=== PATIENT | male | born 2000 | race African-American/Black ===

== ENCOUNTER 2022-08-08 15:47 | Emergency (ER) | payer BC, SELFPAY ==
[2022-08-08 15:52] VITALS: BP 153/82; PULSE 98; RESP 18; TEMP 36.6; O2SAT 100
--- NOTE | 2022-08-08 18:31 | ED.GENADULT ---
HPI - General Adult General Chief complaint: Urogenital-Male Stated complaint: Pain in groin Time Seen by Provider: 08/08/22 18:30 Source: patient Mode of arrival: ambulatory Limitations: no limitations History of Present Illness HPI narrative: 22 years old -Ang[place] male presented to the ED with intermittent sharp pain at the left groin area. He denies any fever, chills, nausea, vomiting. 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 Pain gets worse with certain positions. He denies any urinary symptoms, diarrhea or constipation. Related Data Allergies Allergy/AdvReac Type Severity Reaction Status Date / Time No Known Allergies Allergy Verified 08/08/22 15:55 Review of Systems Review of Systems: All systems reviewed & are unremarkable except as noted in HPI and below Exam Narrative: General appearance: Well-developed, well-nourished Skin: Normal color Head: Normocephalic, nontraumatic Eyes: Clear conjunctiva ENT: Oropharynx normal, ears normal, nose normal Neck: Supple, nontender Chest and respiratory: Airway patent, no respiratory distress, no accessory muscle use Heart: Regular rate/rhythm Abdomen: Soft, nontender, no organomegaly, quiet bowel sounds, and left groin area showed no swelling, no rash, no bruises, no localized tenderness. Scrotal exam showed no tenderness, no mass, no rash. Vascular: Normal peripheral pulses, normal capillary refill. Musculoskeletal: Normal range of motion, nontender back Neurologic: Alert and oriented ?3, COMBINING MACHINE OPERATOR is normal as tested, no gross motor deficit Course Vital Signs Vital signs: Vital Signs Temperature 36.6 C 08/08/22 15:52 Pulse Rate 98 08/08/22 15:52 Respiratory Rate 18 08/08/22 15:52 Blood Pressure 153/82 H 08/08/22 15:52 Pulse Oximetry 100 08/08/22 15:52 Oxygen Delivery Room Air 08/08/22 15:52 Temperature 36.6 C 08/08/22 15:52 Pulse Rate 98 08/08/22 15:52 Respiratory Rate 18 08/08/22 15:52 Blood Pressure 153/82 H 08/08/22 15:52 Pulse Oximetry 100 08/08/22 15:52 Oxygen Delivery Room Air 08/08/22 15:52 Medical Decision Making [facility] Narrative Medical decision making narrative: Groin muscular strain/sprain is my concern. Physical examination did not show any significant finding to explain patient condition, patient works lifting heavy objects which high likely the underlying cause of his intermittent pain. There is no need for labs or imaging at this time Differential Diagnosis Differential Diagnosis: Muscular strain/sprain Vital Signs Vital Signs: Vital Signs Temperature 36.6 C 08/08/22 15:52 Pulse Rate 98 08/08/22 15:52 Respiratory Rate 18 08/08/22 15:52 Blood Pressure 153/82 H 08/08/22 15:52 Pulse Oximetry 100 08/08/22 15:52 Oxygen Delivery Room Air 08/08/22 15:52 Temperature 36.6 C 08/08/22 15:52 Pulse Rate 98 08/08/22 15:52 Respiratory Rate 18 08/08/22 15:52 Blood Pressure 153/82 H 08/08/22 15:52 Pulse Oximetry 100 08/08/22 15:52 Oxygen Delivery Room Air 08/08/22 15:52 Discharge Plan Discharge Clinical Impression: Lt groin pain Patient Disposition: Home, Self-Care Condition: Stable Instructions: Antibiotic Form, Groin Pain (ED) Additional Instructions: Return if symptoms are worsening , call your family physician for appointment, take Tylenol as as needed for aches and pain, continue home medications. Take ibuprofen 600 every 6 hours as needed Follow-up/Referrals: Otilio Landry MD [Physician] - 08/13/22 UNKNOWN,DOCTOR [Non-Staff] - Stand Alone Forms: Work/School Release IP
== END 2022-08-08 19:21 | disposition home or self-care (01) ==
PROVIDERS: Emergency Provider Emergency Medicine; PCP Pediatrics Adolescent Medicine
DX: R10.32 Left lower quadrant pain (principal)
CPT/HCPCS: 99281

== ENCOUNTER 2024-12-26 12:57 | Emergency (ER) | payer BC, SELFPAY ==
--- NOTE | ~2024-12-26 | CT_ITS ---
Fred Singh EXAMINATION: CT abdomen pelvis w con COMPARISON: None HISTORY: abdominal cramping x 3 weeks TECHNIQUE: Axial images were obtained through the abdomen, pelvis post administration of IV contrast. Oral contrast was also administered. Coronal reconstruction images were obtained from the axial views. CT scan performed using dose optimization techniques including the following automated exposure control; adjustment of mA and/or kV; use of iterative reconstruction technique. Automatic exposure control was used to reduce radiation dose. Permanent radiation dose record is archived to PACS. FINDINGS: CT abdomen: LUNG BASES: The lung bases are clear. The visualized portions of the heart and pericardium are unremarkable. LIVER: Unremarkable, liver contours intact, no lesions. SPLEEN: Unremarkable. KIDNEYS: Right Kidney: Unremarkable. No calculi. No hydronephrosis. Left Kidney: Unremarkable. No calculi. No hydronephrosis ADRENAL GLANDS: Unremarkable. PANCREAS: Unremarkable. GALLBLADDER/BILIARY: Unremarkable. No biliary dilatation. STOMACH AND ESOPHAGUS: Visualized stomach and esophagus within normal limits. BOWEL/MESENTERY: Moderate fecal content, no colitis or diverticulitis. Appendix normal. Mesentery normal. No thickening or dilated loops of small bowel. ADENOPATHY/RETROPERITONEUM: No lymphadenopathy. AORTA/VASCULATURE: Normal caliber aorta. FREE FLUID OR FREE AIR: Trace free fluid.. CT pelvis: SOLID ORGANS/REPRODUCTIVE: Unremarkable. BLADDER: Circumferential thickening of the bladder wall. OSSEOUS STRUCTURES: No acute osseous abnormality.No suspicious lesions. OVERLYING SOFT TISSUES: Unremarkable. IMPRESSION: Probable cystitis Reviewed, dictated and finalized at location P. IMPRESSION: Probable cystitis
--- OUTSIDE RECORDS SUMMARY | 2024-12-26 12:59 | XMS_ITS | Clinical Summary ---
Author Organization [facility] Address [address] [place] [address] Care Team Providers Care Stationary Fireman Name Role Phone Cathy Cosme MD Primary Care Provider [phone] Source Comments [facility],non-owned Affiliates and Associated Physician Practices is amultiple site organization consisting of ambulatory clinics and hospital sitesin [place], [place], [place] and [place]. This disclosure is being madepursuant to the Care Everywhere program and may not contain all information available regarding this patient. Last updated 17.[facility] [email or web address] Allergies No known active allergies Medications * Be aware that medications may not be up to date on this document. Alwaysverify current medications with the patient. 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 SUPERVISOR Gender Identity Not on file Sexual Orientation Not on file Last Filed Vital Signs Vital Sign Reading Time Taken Comments Blood Pressure 116/64 05/21/2017 12:09 PM LOGISTICS SUPERVISOR Pulse 76 05/21/2017 12:09 PM LOGISTICS SUPERVISOR Temperature 36.3 C (97.3 F) 05/21/2017 9:52 AM LOGISTICS SUPERVISOR Respiratory Rate 16 05/21/2017 12:09 PM LOGISTICS SUPERVISOR Oxygen Saturation 98% 05/21/2017 9:52 AM LOGISTICS SUPERVISOR Inhaled Oxygen Concentration - - Weight 74.8 kg (165 lb) 05/21/2017 9:52 AM LOGISTICS SUPERVISOR Height 164.9 cm (5' 4.92) 07/23/2016 3:29 PM CD T Body Mass Index - - Plan of Treatment Health Maintenance Due Date Last Done Comments HIV SCREENING 02/01/2016 HPV VACCINE (1 - Male 3-dose series) 02/01/2016 MENINGOCOCCAL (Group B) VACC INE SHARED DECISION-MAKING (1 of 2 - Standard) 2017 HEPATITIS C SCREENING 01/27/2019 DTAP/TDAP/TD VACCINES (1 - Tdap) 02/01/2020 HEPATITIS B VACCINE (1 of 3 - 19+ 3-dose series) 02/01/2020 DEPRESSION SCREENING 03/18/2024 COVID-19 VACCINE (1 - 2023-2 5 season) 2024 INFLUENZA VACCINE (#1) 2024 ZOSTER VACCINE (1 of 2) 2051 HIB VACCINE Aged Out No longer eligi ble based on patient's age to complete this topic MENINGOCOCCAL GROUPS A/C/Y/W VACCINE Aged Out No longer eligible b ased on patient's age to complete this topic PNEUMOCOCCAL VACCINE Aged Out No long er eligible based on patient's age to complete this topic Insurance NOHELIA ANTHEM ANTHEM Care Teams Stationary Fireman Relationship Specialty Start Date End Date Cathy Cosme MD PCP - General Pediatrics 05/21/17
[2024-12-26 13:05] VITALS: BP 145/84; PULSE 76; RESP 18; TEMP 36.7; O2SAT 100
[2024-12-26 13:55] LABS: Hematocrit 44.3 % (42.0-52.0); Hemoglobin 14.9 g/dL (14.0-18.0); Immature Granulocyte Percent A 0.4 % (0-0.5); Lymphocytes Absolute Auto 1.92 K/mm3 (0.9-3.2); Mean Corpuscular HGB Conc 33.6 g/dl (32-36); Mean Corpuscular Hemoglobin 29.0 pg (26-34); Mean Corpuscular Volume 86.2 fl (80-100); Nucleated Red Blood Cells Absolute Auto 0.000 K/mm3 (0.0-0.012); Nucleated Red Blood Cells Perc 0.0 % (0.0-0.2); Platelet Count Result 236 k/mm3 (150-375); Red Blood Count 5.14 M/mm3 (4.6-6.20); White Blood Count 5.6 K/mm3 (4.5-10.0)
[2024-12-26 14:04] LABS: Add Urine Microscopic? NO; Appearance Urine Clear (Clear); Glucose Urine UA Negative (Negative); Leukocyte Esterase Ur Negative LEU/UL (Negative); Nitrate Urine Negative (Negative); Specific Grav Ur 1.020 (1.001-1.035)
[2024-12-26 14:13] LABS: Alanine Aminotransferase 32 U/L (6-50); Albumin Level 4.8 g/dL (3.5-5.1); Alkaline Phosphatase 59 U/L (38-126); Anion Gap 10 mmol/L (4-12); Aspartate Amino Transferase 34 U/L (17-59); Bilirubin,Total 0.7 mg/dL (0.2-1.3); Blood Urea Nitrogen 14 mg/dL (9-20); Calcium 9.3 mg/dL (8.4-10.2); Carbon Dioxide 24 mmol/L (22-30); Chloride 102 mmol/L (98-107); Estimated CRCL calculation 122 ml/min; Estimated Glomerular Filt Rate > 60; Glucose 103 mg/dL (65-110); Lipase 64 U/L (23-300); Potassium 4.1 mmol/L (3.4-5.0); Sodium 136 mmol/L (137-145); Total Protein 7.9 g/dL (6.3-8.2)
--- NOTE | 2024-12-26 14:13 | ED_ITS ---
HPI - Abdominal Pain General Chief Complaint: Abdominal Pain Stated Complaint: stomach issues, bowel issues Time Seen by Provider: 12/26/24 13:57 History of Present Illness HPI narrative: Pt is a 24-year-old male who presents to the ER with a 3 week history of abdominal pain, diarrhea, constipation, mucous in stools, and nausea. He reports in the beginning of November he had COVID. Patient reports his COVID symptoms were mostly respiratory related. He denies any recent fevers, chills, vomiting, back pain, or urinary symptoms. Patient reports he noticed some rectal bleeding before but that has subsided. He also endorses intermittent cramping. Patient denies any medical history relevant to this ER visit. He is wondering if he ate bad something that irritated his GI tract. Related Data Allergies Allergy/AdvReac Type Severity Reaction Status Date / Time No Known Allergies Allergy Verified 12/26/24 13:09 Review of Systems 2 Review of Systems: All systems reviewed & are unremarkable except as noted in HPI and below Exam 2 Narrative: GENERAL: Well appearing, well-nourished, non-toxic, in no acute distress. HEAD: Normocephalic, atraumatic. NECK: Supple. No adenopathy, no masses. RESPIRATORY: Airway patent, respirations nonlabored. Clear to auscultation bilaterally, no rales, rhonchi, wheezing. CARDIOVASCULAR: Regular rate and rhythm without murmurs, rubs, or gallops. Peripheral pulses 2+ and equal bilaterally. ABDOMINAL: Soft, nontender, nondistended, no hepatosplenomegaly. Normoactive BS. MUSCULOSKELETAL: Moves all extremities. Strength/ROM intact without gross deformities. SKIN: Warm, dry, normal color. No rashes. NEURO: A&O X3. Speech clear. Cranial nerves II-XII intact. No ataxic movements. PSYCHIATRIC: Appropriate mood and affect. Normal interaction. Course Vital Signs Vital signs: Vital Signs Temperature 36.7 C 12/26/24 13:05 Pulse Rate 76 12/26/24 13:05 Respiratory Rate 18 12/26/24 13:05 Blood Pressure 145/84 H 12/26/24 13:05 Pulse Oximetry 100 12/26/24 13:05 Oxygen Delivery Room Air 12/26/24 13:05 Temperature 36.7 C 12/26/24 13:05 Pulse Rate 76 12/26/24 13:05 Respiratory Rate 18 12/26/24 13:05 Blood Pressure 145/84 H 12/26/24 13:05 Pulse Oximetry 100 12/26/24 13:05 Oxygen Delivery Room Air 12/26/24 13:05 MDM - Abdominal Pain MDM Narrative Medical decision making narrative: Pt is a 24-year-old male who presents to the ER with a 3 week history of abdominal pain, diarrhea, constipation, mucous in stools, and nausea. He reports in the beginning of November he had COVID. Patient reports his COVID symptoms were mostly respiratory related. He denies any recent fevers, chills, vomiting, back pain, or urinary symptoms. Patient reports he noticed some rectal bleeding before but that has subsided. He also endorses intermittent cramping. Patient denies any medical history relevant to this ER visit. He is wondering if he ate bad something that irritated his GI tract. Labs Ordered: CBC, CMP, UA, lipase, C diff, COVID/flu/RSV Imaging Ordered: CT abdomen pelvis with contrast Medications Ordered: 1 L normal saline IV bolus Results: Patient's CBC, CMP, UA, viral swab were all negative for acute abnormalities. Patient Education/Shared MDM: Results of lab work and imaging shared with patient. Unable to get c.dif results, as pt's stool sample was formed and not loose. He denies any exacerbation of symptoms here in the ER. Patient strongly advised to maintain hydration status upon discharge and follow-up with his PCP in the next 2-3 days if his symptoms do not improve. He will be discharged home with a prescription for Zofran, Miralax and Bentyl. Strict return precautions provided. Patient verbalized understanding and is in agreement with plan. Vital signs stable at time of discharge. All questions answered. Differential Diagnosis Differential diagnosis: Likely abdominal pain, acute appendicitis, calculus of kidney, constipation, diverticulitis and gastroenteritis Lab Data Attestation: I reviewed the patient's lab results. 12/26/24 13:50 12/26/24 13:50 Labs: Lab Results 12/26/24 12/26/24 12/26/24 Range/Units 13:50 13:56 14:34 WBC 5.6 (4.5-10.0) K/mm3 RBC 5.14 (4.6-6.20) M/mm3 Hgb 14.9 (14.0-18.0) g/dL Hct 44.3 (42.0-52.0) % MCV 86.2 (80-100) fl MCH 29.0 (26-34) pg MCHC 33.6 (32-36) g/dl RDW 12.8 (11.5-14.5) % Plt Count 236 (150-375) k/mm3 MPV 9.5 (7.4-10.4) fl Immature Gran % (Auto) 0.4 (0-0.5) % Neut % (Auto) 50.1 (45.5-73.1) % Lymph % (Auto) 34.3 (18.3-44.2) % Orange % (Auto) 9.3 H (2.6-8.5) % Eos % (Auto) 5.2 H (0-4.4) % Baso % (Auto) 0.7 (0.2-1.2) % Lymph # (Auto) 1.92 (0.9-3.2) K/mm3 Orange # (Auto) 0.5 (0.1-0.6) K/mm3 Eos # (Auto) 0.3 (0-0.3) K/mm3 Baso # (Auto) 0.0 (0.0-0.1) K/mm3 Abs Immat Gran (auto) 0.02 (0.00-0.031) K/mm3 Absolute Neuts (auto) 2.8 (1.3-6.7) K/mm3 Absolute Nucleated RBC 0.000 (0.0-0.012) K/mm3 Nucleated RBC % 0.0 (0.0-0.2) % Sodium 136 L (137-145) mmol/L Potassium 4.1 (3.4-5.0) mmol/L Chloride 102 (98-107) mmol/L Carbon Dioxide 24 (22-30) mmol/L Anion Gap 10 (4-12) mmol/L BUN 14 (9-20) mg/dL Creatinine 0.88 (0.7-1.3) mg/dL Estim Creat Clear Calc 122 ml/min Estimated GFR > 60 (59 - ) Glucose 103 (65-110) mg/dL Calcium 9.3 (8.4-10.2) mg/dL Total Bilirubin 0.7 (0.2-1.3) mg/dL AST 34 (17-59) U/L ALT 32 (6-50) U/L Alkaline Phosphatase 59 (38-126) U/L Total Protein 7.9 (6.3-8.2) g/dL Albumin 4.8 (3.5-5.1) g/dL Lipase 64 (23-300) U/L Urine Color Yellow (Yellow) Urine Appearance Clear (Clear) Urine pH 7.0 (5.0-9.0) Ur Specific [place] 1.020 (1.001-1.035) Urine Protein Negative (Negative) mg/dL Urine Glucose (UA) Negative (Negative) mg/dL Urine Ketones Negative (Negative) mg/dL Ur Blood (Man) Negative (Negative) Urine Nitrate Negative (Negative) Urine Bilirubin Negative (Negative) Urine Urobilinogen 1.0 (<2.0) mg/dL Leukocyte Esterase Rfl Negative (Negative) AVIS/UL C. difficile (PCR) Influenza A (RT-PCR) Negative (Negative) Influenza B (RT-PCR) Negative (Negative) RSV (RT-PCR) Negative (Negative) SARS-CoV-2 RNA (RT-PCR) Negative (Negative) 12/26/24 Range/Units 16:16 WBC (4.5-10.0) K/mm3 RBC (4.6-6.20) M/mm3 Hgb (14.0-18.0) g/dL Hct (42.0-52.0) % MCV (80-100) fl MCH (26-34) pg MCHC (32-36) g/dl RDW (11.5-14.5) % Plt Count (150-375) k/mm3 MPV (7.4-10.4) fl Immature Gran % (Auto) (0-0.5) % Neut % (Auto) (45.5-73.1) % Lymph % (Auto) (18.3-44.2) % Orange % (Auto) (2.6-8.5) % Eos % (Auto) (0-4.4) % Baso % (Auto) (0.2-1.2) % Lymph # (Auto) (0.9-3.2) K/mm3 Orange # (Auto) (0.1-0.6) K/mm3 Eos # (Auto) (0-0.3) K/mm3 Baso # (Auto) (0.0-0.1) K/mm3 Abs Immat Gran (auto) (0.00-0.031) K/mm3 Absolute Neuts (auto) (1.3-6.7) K/mm3 Absolute Nucleated RBC (0.0-0.012) K/mm3 Nucleated RBC % (0.0-0.2) % Sodium (137-145) mmol/L Potassium (3.4-5.0) mmol/L Chloride (98-107) mmol/L Carbon Dioxide (22-30) mmol/L Anion Gap (4-12) mmol/L BUN (9-20) mg/dL Creatinine (0.7-1.3) mg/dL Estim Creat Clear Calc ml/min Estimated GFR (59 - ) Glucose (65-110) mg/dL Calcium (8.4-10.2) mg/dL Total Bilirubin (0.2-1.3) mg/dL AST (17-59) U/L ALT (6-50) U/L Alkaline Phosphatase (38-126) U/L Total Protein (6.3-8.2) g/dL Albumin (3.5-5.1) g/dL Lipase (23-300) U/L Urine Color (Yellow) Urine Appearance (Clear) Urine pH (5.0-9.0) Ur Specific [place] (1.001-1.035) Urine Protein (Negative) mg/dL Urine Glucose (UA) (Negative) mg/dL Urine Ketones (Negative) mg/dL Ur Blood (Man) (Negative) Urine Nitrate (Negative) Urine Bilirubin (Negative) Urine Urobilinogen (<2.0) mg/dL Leukocyte Esterase Rfl (Negative) AVIS/UL C. difficile (PCR) Cancelled Influenza A (RT-PCR) (Negative) Influenza B (RT-PCR) (Negative) RSV (RT-PCR) (Negative) SARS-CoV-2 RNA (RT-PCR) (Negative) Imaging Data Attestation: I personally reviewed and interpreted this imaging study as follows: Radiologist's impression: ITS Impressions Abdomen/Pelvis CT 12/26/24 15:08 IMPRESSION: Probable cystitis Discharge Plan Discharge Clinical Impression: Gastroenteritis Patient Disposition: Home Condition: Stable Instructions: Antibiotic Form, Gastroenteritis (ED) Additional Instructions: Please return to the ER with any worsening symptoms. Follow-up with primary care provider if your symptoms do not improve. You may take Bentyl as needed for abdominal pain. You are also prescribe Zofran as needed for nausea. If you continue to his parents constipation please take MiraLax. Remember to drink lots of water. Patient Language: Surinamese Prescriptions: New dicyclomine 20 mg tablet 20 mg PO TID Qty: 10 0RF ondansetron 4 mg tablet,disintegrating 4 mg PO Q8H Qty: 20 0RF polyethylene glycol 3350 [Miralax] 17 gram/dose powder 17 g PO DAILY Qty: 238 0RF Follow-up/Referrals: Raj Carbajal MD [Primary Care Provider, Family Practice] Stand Alone Forms: Work/School Release IP Time of Disposition: 16:46
[2024-12-26] MEDS: SODIUM CHLORIDE 0.9% IV 1,000 ML 999 ML IV CONT (14:29)
[2024-12-26 15:14] LABS: Influenza A QL RT-PCR Negative (Negative); Influenza B QL RT-PCR Negative (Negative); RSV RNA, RT-PCR Negative (Negative); SARS-CoV-2 RNA PCR Negative (Negative)
[2024-12-26 15:45] VITALS: BP 132/68; PULSE 72; RESP 16; O2SAT 99
[2024-12-26 17:45] VITALS: BP 137/70; PULSE 70; RESP 16; O2SAT 99
== END 2024-12-26 17:45 | disposition home or self-care (01) ==
PROVIDERS: Emergency Medicine; Emergency Provider Registered Nurse; PCP Family Medicine
DX: K52.9 Noninfective gastroenteritis and colitis, unspecified (principal); Z20.822 Contact with and (suspected) exposure to COVID-19; Z86.16 Personal history of COVID-19; R93.41 Abnormal radiologic findings on diagnostic imaging of renal pelvis, ureter, or bladder
CPT/HCPCS: 36415; 74177; 80053; 81003; 83690; 85025; 87637; 96360; 99284; J7030; Q9967

== ENCOUNTER 2025-01-22 10:27 | Outpatient (CLI) | payer BC, SELFPAY ==
[2025-01-22 10:49] LABS: Hematocrit 45.2 % (42.0-52.0); Hemoglobin 15.4 g/dL (14.0-18.0); Immature Granulocyte Percent A 0.3 % (0-0.5); Lymphocytes Absolute Auto 1.32 K/mm3 (0.9-3.2); Mean Corpuscular HGB Conc 34.1 g/dl (32-36); Mean Corpuscular Hemoglobin 29.3 pg (26-34); Mean Corpuscular Volume 85.9 fl (80-100); Nucleated Red Blood Cells Absolute Auto 0.000 K/mm3 (0.0-0.012); Nucleated Red Blood Cells Perc 0.0 % (0.0-0.2); Platelet Count Result 243 k/mm3 (150-375); Red Blood Count 5.26 M/mm3 (4.6-6.20); White Blood Count 5.8 K/mm3 (4.5-10.0)
[2025-01-22 11:03] LABS: Iron 200 ug/dL (49-181)
[2025-01-22 11:05] LABS: Alanine Aminotransferase 33 U/L (6-50); Albumin Level 5.2 g/dL (3.5-5.1); Alkaline Phosphatase 59 U/L (38-126); Anion Gap 13 mmol/L (4-12); Aspartate Amino Transferase 44 U/L (17-59); Bilirubin,Total 1.4 mg/dL (0.2-1.3); Blood Urea Nitrogen 13 mg/dL (9-20); CRP < 0.5 mg/dL (<1.0); Calcium 9.4 mg/dL (8.4-10.2); Carbon Dioxide 24 mmol/L (22-30); Chloride 100 mmol/L (98-107); Estimated Glomerular Filt Rate > 60; Glucose 99 mg/dL (65-110); Potassium 4.0 mmol/L (3.4-5.0); Sodium 137 mmol/L (137-145); Total Protein 8.5 g/dL (6.3-8.2)
--- OUTSIDE RECORDS SUMMARY | 2025-01-22 11:09 | XMS_ITS | Clinical Summary ---
Author Organization [facility] Address [address] [place] [address] Care Team Providers Care Outboard System Operator Name Role Phone Cathy Cosme MD Primary Care Provider [phone] Source Comments [facility],non-owned Affiliates and Associated Physician Practices is amultiple site organization consisting of ambulatory clinics and hospital sitesin [place], [place], [place] and [place]. This disclosure is being madepursuant to the Care Everywhere program and may not contain all information available regarding this patient. 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 Gender Identity Not on file Sexual Orientation Not on file Last Filed Vital Signs Vital Sign Reading Time Taken Comments Blood Pressure 116/64 05/21/2017 12:09 PM LEAD PROCESS ENGINEER Pulse 76 05/21/2017 12:09 PM LEAD PROCESS ENGINEER Temperature 36.3 C (97.3 F) 05/21/2017 9:52 AM LEAD PROCESS ENGINEER Respiratory Rate 16 05/21/2017 12:09 PM LEAD PROCESS ENGINEER Oxygen Saturation 98% 05/21/2017 9:52 AM LEAD PROCESS ENGINEER Inhaled Oxygen Concentration - - Weight 74.8 kg (165 lb) 05/21/2017 9:52 AM LEAD PROCESS ENGINEER Height 164.9 cm (5' 4.92) 07/23/2016 3:29 [...] topic Insurance NOHELIA ANTHEM ANTHEM Care Teams Outboard System Operator Relationship Specialty Start Date End Date Cathy Cosme MD PCP - General Pediatrics 05/21/17
[2025-01-22 11:13] LABS: Percent Iron Saturation 61 % (20-50)
[2025-01-22 11:39] LABS: Prostate Specific Antigen 1.0 ng/mL (< OR = 4.0); Thyroid Stimulating Hormone 0.893 uIU/mL (0.465-4.680)
[2025-01-22 11:45] LABS: Ferritin 186.00 ng/mL (17.9-464)
[2025-01-22 12:14] LABS: Vitamin B12 417.0 pg/mL (239-931)
[2025-01-25 13:08] LABS: EBV Nuclear Antigen Ab, IgG >600.0 U/mL (0.0-17.9)
== END 2025-01-22 10:28 | disposition home or self-care (01) ==
LOC: ANHLAB 10:28
PROVIDERS: PCP Family Medicine
DX: R19.5 Other fecal abnormalities (principal); Z13.0 Encounter for screening for diseases of the blood and blood-forming organs and certain disorders involving the immune mechanism; K59.00 Constipation, unspecified; R53.83 Other fatigue; Z80.0 Family history of malignant neoplasm of digestive organs; Z80.42 Family history of malignant neoplasm of prostate; D72.821 Monocytosis (symptomatic); E55.9 Vitamin D deficiency, unspecified; N32.89 Other specified disorders of bladder; Z13.29 Encounter for screening for other suspected endocrine disorder
CPT/HCPCS: 36415; 80053; 82306; 82607; 82728; 82746; 83540; 83550; 84153; 84443; 85025; 86140; 86664; 86665; G0103

== ENCOUNTER 2025-02-13 13:31 | Outpatient (CLI) | payer BC, SELFPAY ==
--- OUTSIDE RECORDS SUMMARY | 2025-02-13 13:33 | XMS_ITS | Clinical Summary ---
Author Organization [facility] Address [address] [place] [address] Care Team Providers Care Manager Fashion Name Role Phone Cathy Cosme MD Primary Care Provider [phone] Source Comments [facility],non-owned Affiliates and Associated Physician Practices is amultiple site organization consisting of ambulatory clinics and hospital sitesin [place], [place], [place] and [place]. This disclosure is being madepursuant to the Care Everywhere program and may not contain all information available regarding this patient. Last updated 17.[facility] [employer] Allergies No known active allergies Medications * [...] on file Legal Sex Male 6:55 AM AIR AND MISSILE DEFENSE CREWMEMBER Gender Identity Not on file Sexual Orientation Not on file Last Filed Vital Signs Vital Sign Reading Time Taken Comments Blood Pressure 116/64 05/21/2017 12:09 PM AIR AND MISSILE DEFENSE CREWMEMBER Pulse 76 05/21/2017 12:09 PM AIR AND MISSILE DEFENSE CREWMEMBER Temperature 36.3 C (97.3 F) 05/21/2017 9:52 AM AIR AND MISSILE DEFENSE CREWMEMBER Respiratory Rate 16 05/21/2017 12:09 PM AIR AND MISSILE DEFENSE CREWMEMBER Oxygen Saturation 98% 05/21/2017 9:52 AM AIR AND MISSILE DEFENSE CREWMEMBER Inhaled Oxygen Concentration - - Weight 74.8 kg (165 lb) 05/21/2017 9:52 AM AIR AND MISSILE DEFENSE CREWMEMBER Height 164.9 cm (5' 4.92) 07/23/2016 3:29 PM CD T Body Mass Index - - Plan of Treatment Health Maintenance Due Date Last Done Comments HIV SCREENING 02/01/2016 HPV VACCINE (1 - Male 3-dose series) 02/01/2016 HEPATITIS C SCREENING 01/27/2019 DTAP/TDAP/TD VACCINES (1 - Tdap) 02/01/2020 HEPATITIS B VACCINE (1 of 3 - 19+ 3-dose series) 02/01/2020 DEPRESSION SCREENING 03/18/2024 COVID-19 VACCINE (1 - 2024-2 6 season) 2024 INFLUENZA VACCINE (#1) 2024 ZOSTER VACCINE (1 of 2) 2051 HIB VACCINE Aged Out No longer eligi ble based on patient's age to complete this topic MENINGOCOCCAL (Group B) VACC INE SHARED DECISION-MAKING Aged Out No longer eligibl e based on patient's age to complete this topic MENINGOCOCCAL GROUPS A/C/Y/W VACCINE Aged Out No longer eligible b ased on patient's age to complete this topic PNEUMOCOCCAL VACCINE Aged Out No long er eligible based on patient's age to complete this topic Insurance LESTER ANTHEM ANTHEM Care Teams Manager Fashion Relationship Specialty Start Date End Date Cathy Cosme MD PCP - General Pediatrics 05/21/17
[2025-02-13 14:02] LABS: Iron 112 ug/dL (49-181)
[2025-02-13 14:12] LABS: Percent Iron Saturation 35 % (20-50)
[2025-02-13 14:33] LABS: Alanine Aminotransferase 32 U/L (6-50); Albumin Level 4.7 g/dL (3.5-5.1); Alkaline Phosphatase 47 U/L (38-126); Aspartate Amino Transferase 33 U/L (17-59); Bilirubin,Total 0.7 mg/dL (0.2-1.3); Total Protein 7.8 g/dL (6.3-8.2)
[2025-02-13 14:35] LABS: Hepatitis B Surface Antigen Negative (Negative)
[2025-02-13 14:40] LABS: HAV RESULT Negative (Negative); Hepatitis B Core IgM Result Negative (Negative)
[2025-02-15 10:08] LABS: GGT 19 IU/L (0-65)
== END 2025-02-13 13:32 | disposition home or self-care (01) ==
LOC: ANHLAB 13:32
PROVIDERS: PCP Family Medicine
DX: K59.00 Constipation, unspecified (principal); R79.89 Other specified abnormal findings of blood chemistry; R79.0 Abnormal level of blood mineral; Z80.0 Family history of malignant neoplasm of digestive organs; R19.5 Other fecal abnormalities; R53.83 Other fatigue; Z80.42 Family history of malignant neoplasm of prostate
CPT/HCPCS: 36415; 80074; 80076; 82977; 83540; 83550

== ENCOUNTER 2025-03-17 00:21 | Day surgery (SDC) | payer BC, SELFPAY ==
[2025-02-19 09:51] VITALS: BMI 34.0
[2025-03-17 08:31] VITALS: BP 155/71; PULSE 67; RESP 18; TEMP 36.1; O2SAT 100; BMI 32.5
[2025-03-17] MEDS: LACTATED RINGERS 1,000 ML 150 ML IV CONT (08:44)
--- NOTE | 2025-03-17 09:38 | WPDANESEPPF ---
Anes - Initial Pre Proc Eval Procedure: Operation Date: 03/17/25 09:30 Proposed Procedures p Diagnostic Colonoscopy - Carter Avitia MD Date/Time: 03/17/25 09:38 Surgeon: Carter Avitia MD Pre Op Diagnosis: Change in bowel habit Patient Data Age: 25 Gender: M Height: 1.68 m Weight: 91.4 kg Last Vital Signs Temp 36.1 C L 03/17/25 08:31 Pulse 67 03/17/25 08:31 Resp 18 03/17/25 08:31 BP 155/71 H 03/17/25 08:31 Pulse Ox 100 03/17/25 08:31 O2 Del Method Room Air 03/17/25 08:31 Allergies Allergy/AdvReac Type Severity Reaction Status Date / Time No Known Allergies Allergy Verified 03/17/25 08:30 Home Medications ?Medication ?Instructions ?Recorded ?Confirmed ?Type cholecalciferol (vitamin D3) 1,250 1,250 mcg PO WEEKLY #8 caps 01/22/25 02/19/25 Rx mcg (50,000 unit) capsule Patient hx anesthesia problems: none Family hx anesthesia problems: none Results Review: All pre-operative results and documents have been reviewed as part of the pre-operative evaluation. [facility] Social History Social History Smoking status: Never smoker Alcohol intake: never Substance use: never Substance use type: does not use Lack of Transportation: No Lack of Food: Never True Current Housing: I Have Housing Concerned About Future Housing: No Difficulty Paying Gas/Electric Bills: No Difficulty Paying for Meds: No Currently Unemployed: No Difficulty w/ Childcare or Family Care: No Anes - Eval Final PreProcedure Day of Procedure 03/17/25 09:38 Patient weight: obese Heart: regular rate and rhythm Lungs: clear to auscultation Airway: Mallampati scale class II Neurological: alert and oriented Last oral intake: >/= 8 hours ASA classification: III Emergent: no Anesthetic plan: proceed Anesthesia type and monitoring: general GIVS and standard monitoring Results Review: All pre-operative results and documents have been reviewed as part of the pre-operative evaluation. Informed Consent: The patient's anesthetic plan and its attendant risks and benefits were discussed with the patient/family/POA. Questions were solicited and answers provided to the satisfaction of the patient/family/POA.
--- NOTE | 2025-03-17 09:42 | PM.HPGS ---
History of Present Illness History of Present Illness Consent: Risks, benefits, and alternatives have been discussed and questions answered. Patient agrees to proceed with procedure. Chief complaint: Change in bowel habit Narrative: Fred Singh IV is a 25 year old male with change in bowel habits. Review of Systems Review of Systems: All systems reviewed & are unremarkable except as noted in HPI and below PMFSH Social History Social History Smoking status: Never smoker Alcohol intake: never Substance use: never Substance use type: does not use Lack of Transportation: No Lack of Food: Never True Current Housing: I Have Housing Concerned About Future Housing: No Difficulty Paying Gas/Electric Bills: No Difficulty Paying for Meds: No Currently Unemployed: No Difficulty w/ Childcare or Family Care: No Meds Home Medications and Allergies Home Medications ?Medication ?Instructions ?Recorded ?Confirmed ?Type cholecalciferol (vitamin D3) 1,250 1,250 mcg PO WEEKLY #8 caps 01/22/25 02/19/25 Rx mcg (50,000 unit) capsule Allergies Allergy/AdvReac Type Severity Reaction Status Date / Time No Known Allergies Allergy Verified 03/17/25 08:30 Vital Signs Vital Signs - 24 hr 03/17/25 08:31 Temperature 97 F L Pulse Rate 67 Respiratory Rate 18 Blood Pressure 155/71 H Pulse Oximetry 100 Oxygen Delivery Room Air Exam Narrative: GENERAL: Well appearing, well-nourished, non-toxic, in no acute distress. HEAD: Normocephalic, atraumatic. NECK: Supple. No adenopathy, no masses. RESPIRATORY: Airway patent, respirations nonlabored. Clear to auscultation bilaterally, no rales, rhonchi, wheezing. CARDIOVASCULAR: Regular rate and rhythm without murmurs, rubs, or gallops. Peripheral pulses 2+ and equal bilaterally. ABDOMINAL: Soft, nontender, nondistended, no hepatosplenomegaly. Normoactive BS. MUSCULOSKELETAL: Moves all extremities. Strength/ROM intact without gross deformities. SKIN: Warm, dry, normal color. No rashes. NEURO: A&O X3. Speech clear. Cranial nerves II-XII intact. No ataxic movements. PSYCHIATRIC: Appropriate mood and affect. Normal interaction. Assessment and Plan Assessment and plan (1) Change in bowel habit: Code(s): R19.4 - Change in bowel habit Status: Acute Plan 55-year-old male with change in bowel habits.
--- NOTE | 2025-03-17 10:02 | S_PTH ---
PATIENT: Fred Singh IV LOC: [facility]#:[id number] AGE/SX: 25/M ROOM: RE03/17/[address]: Carter Avitia MD : [id number] BED: DIS: 03/17/2025 SPEC #: [id number] RECD: 03/17/25 10:15 STATUS: ROSY REMaurizio #: [id number] MONIQUE: 03/17/25 10:[address]: Catalino Goldstein DEPT: [facility] Surgical RECD BY: Michelle Graves ENTERED: 03/17/25 10:16 SP TYPE: Surgical OTHR DR: Carter Avitia MD Raj Alisson Carbajal MD Tissues: A - Colon Biopsy Procedures: Hematoxylin and Eosin Stain Gross and Microscopic Level 4
[2025-03-17 10:05] VITALS: BP 117/63; PULSE 63; RESP 18; O2SAT 100
[2025-03-17 10:15] VITALS: BP 111/65; PULSE 60; RESP 18; O2SAT 100
[2025-03-17 10:25] VITALS: BP 113/69; PULSE 58; RESP 20; O2SAT 100
== END 2025-03-17 10:38 | disposition home or self-care (01) ==
PROVIDERS: Internal Medicine Gastroenterology; PCP Family Medicine; Visit Provider Internal Medicine Gastroenterology
PROC: 0DJD8ZZ Inspection of Lower Intestinal Tract, Via Natural or Artificial Opening Endoscopic (ICD-10-PCS; CPT 45378; principal; 2025-03-17 09:30)
DX: R19.4 Change in bowel habit (principal); E66.9 Obesity, unspecified; Z68.32 Body mass index [BMI] 32.0-32.9, adult
CPT/HCPCS: 45380; 88305; J2003; J2704; J7120